=== PATIENT | female | born 1980 | race Caucasian/White ===

== ENCOUNTER 2022-12-21 23:21 | Emergency (ER) | payer SELFPAY ==
[2022-12-21 23:22] VITALS: BMI 23.1
[2022-12-21 23:25] VITALS: BP 135/84; PULSE 140; RESP 16; TEMP 36.6; O2SAT 97
--- NOTE | 2022-12-21 23:30 | ECG_ITS ---
[facility] Test Date: 2022-12-21 Pat Name: Faina Zabala Department: Room: Gender: Female Dermatology Physician: : [id number] Requested By: Issac Kaye Order Number: [id number] Reading MD: Kae Dillon M.D. Measurements Intervals [place] Rate: P: 0 DE: 0 QRS: 0 QRSD: 0 T: 0 QT: 0 QTc: 0 Interpretive Statements Sinus tachycardia heart rate 110 bpm Possible left atrial enlargement ATYPICAL ECG WARNING: DATA QUALITY MAY AFFECT INTERPRETATION No previous ECG available for comparison Electronically Signed On 12-23-2022 0:16:16 CDT by Kae Dillon M.D. [email or web address], [place] [id number]
--- NOTE | 2022-12-21 23:30 | XRR_ITS ---
PROCEDURE INFORMATION: Exam: XR Chest Exam date and time: 12/21/2022 11:44 PM Age: 42 years old Clinical indication: Other: Palpitations; Additional info: Palpitationa TECHNIQUE: Imaging protocol: Radiologic exam of the chest. Views: 1 view. COMPARISON: No relevant prior studies available. FINDINGS: Lungs: Hyperinflated lungs. No focal pulmonary consolidation. No pulmonary mass. Pleural spaces: Unremarkable. No pleural effusion. No pneumothorax. Heart/Mediastinum: Unremarkable. No cardiomegaly. Bones/joints: Unremarkable. XR/XR chest 1V portable [id number] IMPRESSION: Negative for focal acute pulmonary disease.
--- NOTE | 2022-12-21 23:32 | ED_ITS ---
HPI - Arrhythmia/Palpitations General: Chief Complaint: Arrhythmia/Palpitations Stated Complaint: palpitations Time Seen by Provider: 12/21/22 23:21 Source: patient and EMS Mode of arrival: EMS Limitations: no limitations History of Present Illness: 42-year-old female who states she has a history anxiety she states that she started having palpitations at home became anxious she is tachycardic here she had some mild dyspnea she denies any chest pain she denies any worsening improving factors. Denies any abdominal pain or vomiting. Associated symptoms: Reports anxiety; Deny nausea or vomiting Review of Systems Const: Denies: fever(s), chills, body aches or change in appetite Eyes: Denies: blurry vision or eye discomfort ENMT: Denies: throat pain or dental pain Card: Denies: chest pain Resp: Reports: dyspnea GI: Denies: abdominal pain, nausea, vomiting or diarrhea : Denies: dysuria Musc: Denies: neck pain or back pain Skin/Breast: Denies: rash Neuro: Denies: headache(s) Psych: Reports: anxiety [place]/Lymph: Denies: easy bruising All/Imm: Denies: urticaria PFSH ED PFSH: Medical History Anxiety Social History Substance/Drug Use: unknown Female Reproductive History: Date of last menstrual period: 12/15/22 Physical Exam Const: COMMON NORMALS: no acute distress, patient oriented x3 and healthy appearing GENERAL APPEARANCE: anxious HENMT: COMMON NORMALS: normocephalic and atraumatic HEAD & SCALP: normocephalic and atraumatic Eye: COMMON NORMALS: Equal, round and reactive pupils present and EOMs intact bilaterally PUPIL: Yes Equal, round and reactive pupils present Neck/C-Spine: COMMON NORMALS: full ROM and supple Chest: COMMONS NORMALS: normal inspection of the chest and normal palpation of entire chest wall Resp: COMMON NORMALS: normal respiratory effort, No retractions, No use of accessory muscles and clear to auscultation bilaterally AUSCULTATION: clear to auscultation bilaterally Cardio: COMMON NORMALS: regular rhythm and No murmurs present (Cardio) RATE: tachycardic RHYTHM: regular rhythm GI: COMMON NORMALS: Normal to inspection, nondistended, normoactive bowel sounds present, Soft to palpation, non-tender and no masses PALPATION: Yes Soft to palpation Extremity: COMMON NORMALS: normal to inspection and full ROM Neuro: COMMON NORMALS: patient oriented x3, moves all extremities and no focal motor deficits Psych: COMMON NORMALS: mental status grossly normal, Normal thought process present and cooperative THOUGHT PROCESS: Normal thought process present Skin: COMMON NORMALS: no rashes or lesions noted and no wounds GENERAL SKIN EXAM: no rashes or lesions noted Course Vital Signs: Vital signs: Vital Signs Temperature 97.9 F 12/21/22 23:25 Pulse Rate 128 H 12/21/22 23:50 Respiratory Rate 16 12/21/22 23:25 Blood Pressure 126/85 12/21/22 23:50 Pulse Oximetry 95 12/21/22 23:50 Oxygen Delivery Me thod 12/21/22 23:50 MDM - Arrhythmia/Palpitations Medical Decision Making Patient presents here with palpitations her heart rate is improved here after Ativan likely an anxiety attack her D-dimer was elevated patient is refusing a CT scan she is wanting to leave I informed her she could have a pulmonary embolism which is life-threatening she understands that this she does have medical decision made capacity and signed out AGAINST MEDICAL ADVICE. Lab Data 12/22/22 00:10 12/22/22 00:10 Radiology Impressions Chest X-Ray 12/21/22 23:30 IMPRESSION: Negative for focal acute pulmonary disease. Laboratory Results WBC 6.4 10^3/uL (4.0-10.0) 12/22/22 00:10 RBC 3.88 10^6/uL (4.1-5.3) L 12/22/22 00:10 Hgb 11.3 g/dL (11.5-15.3) L 12/22/22 00:10 Hct 35.2 % (37.0-47.0) L 12/22/22 00:10 MCV 90.7 fl (81-99) 12/22/22 00:10 MCH 29.1 pg (28.0-34.0) 12/22/22 00:10 MCHC 32.1 g/dL (30.0-36.0) 12/22/22 00:10 RDW 13.3 % (12.1-15.1) 12/22/22 00:10 Plt Count 233 10^3/cmm (130-400) 12/22/22 00:10 MPV 9.9 fL (7.4-10.4) 12/22/22 00:10 Neut % (Auto) 77.3 % 12/22/22 00:10 Lymph % (Auto) 17.0 % 12/22/22 00:10 [place] % (Auto) 4.6 % 12/22/22 00:10 Eos % (Auto) 0.3 % 12/22/22 00:10 Baso % (Auto) 0.5 % 12/22/22 00:10 Neut # (Auto) 4.93 10^3/uL (1.8-7.7) 12/22/22 00:10 Lymph # (Auto) 1.1 10^3/uL (0.8-4.8) 12/22/22 00:10 [place] # (Auto) 0.3 10^3/uL (0.2-0.9) 12/22/22 00:10 Eos # (Auto) 0.0 10^3/uL (0.0-0.8) 12/22/22 00:10 Baso # (Auto) 0.0 10^3/uL (0.0-0.1) 12/22/22 00:10 Nucleated RBC % (auto) 0 % 12/22/22 00:10 Nucleated RBCs # 0.0 /100WBC 12/22/22 00:10 D-Dimer 0.87 ug/mIFEU (0-0.59) H 12/22/22 00:10 Sodium 137 mmol/L (136-145) 12/22/22 00:10 Potassium 3.9 mmol/L (3.5-5.1) 12/22/22 00:10 Chloride 99 mmol/L (98-107) 12/22/22 00:10 Carbon Dioxide 25 mmol/L (22-29) 12/22/22 00:10 Anion Gap 16.9 (5-19) 12/22/22 00:10 BUN 12 mg/dL (6-20) 12/22/22 00:10 Creatinine 0.7 mg/dL (0.5-0.9) 12/22/22 00:10 GFR Calculation 92.2 mL/min (90-130) 12/22/22 00:10 Glucose 113 mg/dL (65-115) 12/22/22 00:10 Calculated Osmolality 285 mOsm/kg (285-295) 12/22/22 00:10 Calcium 9.2 mg/dL (8.5-10.5) 12/22/22 00:10 Total Bilirubin 0.3 mg/dL (0.15-1.2) 12/22/22 00:10 AST 16 U/L (0-32) 12/22/22 00:10 ALT 13 U/L (0-33) 12/22/22 00:10 Alkaline Phosphatase 93 U/L (35-105) 12/22/22 00:10 Troponin T Baseline 6 ng/L (0-10) 12/22/22 00:10 Total Protein 7.3 g/dL (6.6-8.7) 12/22/22 00:10 Albumin 4.0 g/dL (3.5-5.2) 12/22/22 00:10 Globulin 3.3 g/dL (1.3-4.6) 12/22/22 00:10 HCG, Qual Negative (Negative) 12/22/22 00:10 EKG Data EKG 1: I personally reviewed and interpreted this EKG as follows: EKG interpretation date: 12/21/22 EKG interpretation time: 23:34 Interpretation: sinus tach no st or t wave abnormalities Other EKG comments: Chest X-Ray 12/21/22 23:30 IMPRESSION: Negative for focal acute pulmonary disease. Discharge Plan Discharge Patient Disposition: Left Against Medical Advice Clinical Impression: Palpitations Coding Level of Care Code ED [employer] Specialist for [facility]
[2022-12-21] MEDS: sodium chloride 0.9% 1,000 ML 999 ML IV (23:45)
[2022-12-21] MEDS: LORazepam 2 mg/mL INJ 1 mL 1 MG IVP (23:49)
[2022-12-21 23:50] VITALS: BP 126/85; PULSE 128; O2SAT 95
[2022-12-22 00:18] LABS: Basophils % 0.5 %; Eosinophils % 0.3 %; Hematocrit 35.2 % (37.0-47.0); Hemoglobin 11.3 g/dL (11.5-15.3); Lymphocytes # 1.1 10^3/uL (0.8-4.8); Mean Corpuscular HGB Conc 32.1 g/dL (30.0-36.0); Mean Corpuscular Hemoglobin 29.1 pg (28.0-34.0); Mean Corpuscular Volume 90.7 fl (81-99); Mean Platelet Volume 9.9 fL (7.4-10.4); Monocytes # 0.3 10^3/uL (0.2-0.9); Monocytes % 4.6 %; Neutrophils # 4.93 10^3/uL (1.8-7.7); Neutrophils % 77.3 %; Nucleated Red Blood Cells % 0 %; Platelet Count 233 10^3/cmm (130-400); Red Blood Count 3.88 10^6/uL (4.1-5.3); Red Cell Distribution Width 13.3 % (12.1-15.1); White Blood Count 6.4 10^3/uL (4.0-10.0)
[2022-12-22 00:34] LABS: D Dimer 0.87 ug/mIFEU (0-0.59)
[2022-12-22 00:44] LABS: Troponin(5th) Baseline 6 ng/L (0-10)
[2022-12-22 00:46] LABS: Alanine Aminotransferase 13 U/L (0-33); Alkaline Phosphatase 93 U/L (35-105); Anion Gap 16.9 (5-19); Aspartate Amino Transferase 16 U/L (0-32); Blood Urea Nitrogen 12 mg/dL (6-20); Calcium 9.2 mg/dL (8.5-10.5); Carbon Dioxide 25 mmol/L (22-29); Chloride 99 mmol/L (98-107); Creatinine Clr Calc Pharmacy 110.0602; Globulin 3.3 g/dL (1.3-4.6); Glomerular Filtration Rate 92.2 mL/min (90-130); Glucose 113 mg/dL (65-115); Osmolality Calculated 285 mOsm/kg (285-295); Potassium 3.9 mmol/L (3.5-5.1); Sodium 137 mmol/L (136-145); Total Bilirubin 0.3 mg/dL (0.15-1.2); Total Protein 7.3 g/dL (6.6-8.7)
[2022-12-22 01:23] LABS: HCG, Serum Qual Negative (Negative)
--- NOTE | 2022-12-23 16:22 | DCPLANNER ---
TCM called patient due to no primary care physician - patient stated that she does not live here and does not want a primary care physician.
== END 2022-12-22 01:26 | disposition left against medical advice (07) ==
PROVIDERS: Emergency Provider Emergency Medicine
DX: R00.2 Palpitations (principal); R79.9 Abnormal finding of blood chemistry, unspecified; Z53.21 Procedure and treatment not carried out due to patient leaving prior to being seen by health care provider
CPT/HCPCS: 71045; 80053; 84484; 84703; 85025; 85378; 93005; 96361; 96374; 99285; J2060; J7030